=== PATIENT | female | born 1955 | race Caucasian/White ===

== ENCOUNTER 2018-06-29 18:16 | Emergency (ER) | payer MEDICARE, MEDICAID ==
[~2018-06-29] VITALS: Ht 157.5 cm; Wt 75.0 kg
[~2018-06-29 18:16] MED LIST: CALCIUM CARBONATE; CEPH500 PO; DOCUSATE PO; FERR-89 PO; LANS30CA55 PO; NYST1POW4 MC; TRIAMCINOLONE; VERAPAMIL; VITAMIN C
[2018-06-29 20:12] VITALS: BP 120/68
== END 2018-06-29 20:14 | disposition home or self-care (01) ==
LOC: EMS 18:17
DX: L08.9 Local infection of the skin and subcutaneous tissue, unspecified (principal); M79.89 Other specified soft tissue disorders; Z96.651 Presence of right artificial knee joint
CPT/HCPCS: 99284

== ENCOUNTER 2019-05-31 06:58 | Day surgery (SDC) | payer MEDICARE, MEDICAID ==
[~2019-05-31] VITALS: Ht 157.5 cm; Wt 84.1 kg
[~2019-05-31 06:58] MED LIST changes: +ACET-2247 PO; -CALCIUM CARBONATE; -CEPH500 PO; +CHOL100018 PO; +CYCLOPENTOLATE HCL 1% 2 ML OPHTHALMIC SOLUTION ONE; -DOCUSATE PO; +FLURBIPROFEN SODIUM 0.03% 2.5 ML OPHTHALMIC SOLUTION ONE; -LANS30CA55 PO; +LISI-660 PO; +METO25 PO; -NYST1POW4 MC; +OFLOXACIN 0.3% 5 ML OPHTHALMIC SOLUTION ONE; +OS500 PO; +OXYB5 PO; +PHENYLEPHRINE HCL 2.5% 2 ML OPHTHALMIC SOLUTION ONE; +RINGERS SOLUTION,LACTATED 500 ML IV ONE; +SPIR50 PO; +TETRACAINE HCL/PF 0.5% 4 ML OPHTHALMIC SOLUTION ONE; -TRIAMCINOLONE; +TROPICAMIDE 1% 2 ML OPHTHALMIC SOLUTION ONE; -VERAPAMIL; -VITAMIN C
[2019-05-31] MEDS ORDERED: LIDOCAINE/PF 1% 2 ML VIAL IM ONE (06:59)
[2019-05-31] MEDS ORDERED: EPINEPHrine 1:1,000 [1 MG/ML] AMP IM ONE (06:59)
[2019-05-31] MEDS ORDERED: FentaNYL CITRATE-PF 100 MCG/2 ML VIAL IVP ONE (06:59)
[2019-05-31] MEDS ORDERED: POVIDONE-IODINE 10% 15 ML SOLUTION UD TP ONE (06:59)
[2019-05-31] MEDS ORDERED: HYALURONATE SODIUM 12 MG/ML 0.8 ML SYRINGE IO ONE (06:59)
[2019-05-31] MEDS ORDERED: HYALURONATE SOD/CHONDROITIN SOD 0.5 ML VIAL IO ONE (06:59)
[2019-05-31] MEDS ORDERED: MIDAZOLAM HCL 2 MG/2 ML VIAL IVP ONE (06:59)
[2019-05-31] MEDS ORDERED: RINGERS SOLUTION,LACTATED 500 ML IV ONE (07:00)
[2019-05-31] MEDS ORDERED: TETRACAINE HCL/PF 0.5% 4 ML OPHTHALMIC SOLUTION OS ONE (07:00)
[2019-05-31] MEDS: TROPICAMIDE 1% 2 ML OPHTHALMIC SOLUTION OS SCH ×3 (07:32→07:59)
[2019-05-31] MEDS: PHENYLEPHRINE HCL 2.5% 2 ML OPHTHALMIC SOLUTION OS SCH ×3 (07:34→08:00)
[2019-05-31] MEDS: FLURBIPROFEN SODIUM 0.03% 2.5 ML OPHTHALMIC SOLUTION OS SCH ×3 (07:34→07:58)
[2019-05-31] MEDS: OFLOXACIN 0.3% 5 ML OPHTHALMIC SOLUTION OS SCH ×3 (07:34→07:58)
[2019-05-31] MEDS: CYCLOPENTOLATE HCL 1% 2 ML OPHTHALMIC SOLUTION OS SCH ×3 (07:35→07:59)
== END 2019-05-31 10:00 | disposition home or self-care (01) ==
LOC: SDS 06:58
PROVIDERS: ATTEND Ophthalmology
DX: H25.13 Age-related nuclear cataract, bilateral (principal); I10 Essential (primary) hypertension; Z79.899 Other long term (current) drug therapy
CPT/HCPCS: 66984; 93005; C1780; J0171; J2250; J3010; J3490 ×2; J7120

== ENCOUNTER 2019-07-18 06:17 | Day surgery (SDC) | payer MEDICARE, MEDICAID ==
[~2019-07-18] VITALS: Ht 152.4 cm; Wt 80.0 kg
[~2019-07-18 06:17] MED LIST changes: -CYCLOPENTOLATE HCL 1% 2 ML OPHTHALMIC SOLUTION ONE; -FLURBIPROFEN SODIUM 0.03% 2.5 ML OPHTHALMIC SOLUTION ONE; -OFLOXACIN 0.3% 5 ML OPHTHALMIC SOLUTION ONE; -PHENYLEPHRINE HCL 2.5% 2 ML OPHTHALMIC SOLUTION ONE; -RINGERS SOLUTION,LACTATED 500 ML IV ONE; -TETRACAINE HCL/PF 0.5% 4 ML OPHTHALMIC SOLUTION ONE; -TROPICAMIDE 1% 2 ML OPHTHALMIC SOLUTION ONE
[2019-07-18] MEDS ORDERED: FentaNYL CITRATE-PF 100 MCG/2 ML VIAL IVP ONE (06:18)
[2019-07-18] MEDS ORDERED: MIDAZOLAM HCL 2 MG/2 ML VIAL IVP ONE (06:18)
[2019-07-18] MEDS ORDERED: RINGERS SOLUTION,LACTATED 500 ML IV ONE ×2 (06:32→07:00)
[2019-07-18] MEDS ORDERED: OFLOXACIN 0.3% 5 ML OPHTHALMIC SOLUTION ONE (06:33)
[2019-07-18] MEDS ORDERED: CYCLOPENTOLATE HCL 1% 2 ML OPHTHALMIC SOLUTION ONE (06:33)
[2019-07-18] MEDS ORDERED: FLURBIPROFEN SODIUM 0.03% 2.5 ML OPHTHALMIC SOLUTION ONE (06:33)
[2019-07-18] MEDS ORDERED: PHENYLEPHRINE HCL 2.5% 2 ML OPHTHALMIC SOLUTION ONE (06:33)
[2019-07-18] MEDS ORDERED: TETRACAINE HCL/PF 0.5% 4 ML OPHTHALMIC SOLUTION ONE (06:33)
[2019-07-18] MEDS ORDERED: TROPICAMIDE 1% 2 ML OPHTHALMIC SOLUTION ONE (06:33)
[2019-07-18] MEDS ORDERED: SODIUM CHLORIDE 0.9% 500 ML IV ONE (07:00)
[2019-07-18] MEDS ORDERED: TETRACAINE HCL/PF 0.5% 4 ML OPHTHALMIC SOLUTION OD ONE (07:00)
[2019-07-18] MEDS: FLURBIPROFEN SODIUM 0.03% 2.5 ML OPHTHALMIC SOLUTION OD SCH ×3 (07:22→07:35)
[2019-07-18] MEDS: TROPICAMIDE 1% 2 ML OPHTHALMIC SOLUTION OD SCH ×3 (07:23→07:35)
[2019-07-18] MEDS: OFLOXACIN 0.3% 5 ML OPHTHALMIC SOLUTION OD SCH ×3 (07:23→07:35)
[2019-07-18] MEDS: PHENYLEPHRINE HCL 2.5% 2 ML OPHTHALMIC SOLUTION OD SCH ×3 (07:23→07:35)
[2019-07-18] MEDS: CYCLOPENTOLATE HCL 1% 2 ML OPHTHALMIC SOLUTION OD SCH ×3 (07:23→07:35)
== END 2019-07-18 09:20 | disposition home or self-care (01) ==
LOC: SURGERY 06:17
PROVIDERS: ATTEND Ophthalmology
DX: H25.11 Age-related nuclear cataract, right eye (principal); I10 Essential (primary) hypertension; E66.01 Morbid (severe) obesity due to excess calories; Z68.34 Body mass index [BMI] 34.0-34.9, adult; Z79.899 Other long term (current) drug therapy
CPT/HCPCS: 66984; 93005; C1780; J2250; J3010; J7120

== ENCOUNTER 2019-10-27 10:52 | Emergency (ER) | payer MEDICARE, MEDICAID ==
[~2019-10-27] VITALS: Ht 160 cm; Wt 86.0 kg
[2019-10-27 12:00] VITALS: BP 130/77
== END 2019-10-27 13:16 | disposition home or self-care (01) ==
LOC: EMS 10:58
DX: M25.461 Effusion, right knee (principal); Z98.890 Other specified postprocedural states; Z79.899 Other long term (current) drug therapy

== ENCOUNTER 2020-11-07 12:36 | Emergency (ER) | payer MEDICARE, MEDICAID ==
[~2020-11-07] VITALS: Ht 162.6 cm; Wt 113.6 kg
[~2020-11-07 12:36] MED LIST changes: -LISI-660 PO; +LISI-892 PO
[2020-11-07] MEDS ORDERED: METO50 PO (12:40)
[2020-11-07 15:06] LABS: COVID AG,FIA SOURCE NASAL SWAB
[2020-11-07 18:00] VITALS: BP 136/93
== END 2020-11-07 19:22 | disposition home or self-care (01) ==
LOC: EMS 12:40
DX: T69.1XXA Chilblains, initial encounter (principal); Z20.822 Contact with and (suspected) exposure to COVID-19; Z79.899 Other long term (current) drug therapy; X58.XXXA Exposure to other specified factors, initial encounter
CPT/HCPCS: 82962; 87426; 93925; 93970; 99285; U0003; 82948

== ENCOUNTER 2020-11-21 17:59 | Emergency (ER) | payer MEDICARE, MEDICAID ==
[~2020-11-21] VITALS: Ht 162.6 cm; Wt 100.0 kg
[~2020-11-21 17:59] MED LIST changes: -METO25 PO; +METO50 PO
[2020-11-21 19:30] VITALS: BP 128/74
== END 2020-11-21 21:00 | disposition home or self-care (01) ==
LOC: EMS 17:59
DX: S90.821A Blister (nonthermal), right foot, initial encounter (principal); I10 Essential (primary) hypertension; Z79.899 Other long term (current) drug therapy; X58.XXXA Exposure to other specified factors, initial encounter; Y93.89 Activity, other specified; Y92.89 Other specified places as the place of occurrence of the external cause; Y99.8 Other external cause status
CPT/HCPCS: 99282; 99283

== ENCOUNTER 2021-06-09 11:56 | Emergency (ER) | payer MEDICARE, MEDICAID ==
[~2021-06-09] VITALS: Ht 160 cm; Wt 90.9 kg
[~2021-06-09 11:56] MED LIST changes: -OXYB5 PO; +OXYB5TAB20 PO; -SPIR50 PO; +SPIR50TA27 PO
[2021-06-09] MEDS ORDERED: VIT1CAPS47 PO (12:17)
[2021-06-09] MEDS ORDERED: METO25 PO (12:17)
[2021-06-09] MEDS ORDERED: SIMV-259 PO (12:17)
[2021-06-09 13:03] LABS: EOSINOPHILS % (AUTO) 3.6 % (1.0-6.0); HEMATOCRIT 43.5 % (36-46); HEMOGLOBIN 14.1 g/dL (12.0-16.0); LYMPHOCYTES # (AUTO) 2.1 K/uL (1.0-4.8); LYMPHOCYTES % (AUTO) 20.1 % (22.0-44.0); MEAN CORPUSCULAR HEMOGLOBIN 29.8 pg (26.0-34.0); MEAN CORPUSCULAR HGB CONC 32.4 G/dL (31.0-37.0); MEAN CORPUSCULAR VOLUME 92 fL (80-100); MONOCYTES # (AUTO) 0.8 K/uL (0.1-1.0); MONOCYTES % (AUTO) 7.8 % (2.0-9.0); NEUTROPHILS # (AUTO) 7.2 K/uL (1.8-7.7); NEUTROPHILS % (AUTO) 67.5 % (40.0-70.0); PLATELET COUNT (AUTO) 302 K/uL (150-450); RED BLOOD CELL COUNT(AUTO) 4.74 MIL/uL (4.00-5.20); RED CELL DISTRIBUTION WIDTH 14.2 % (11.5-14.5)
[2021-06-09 13:12] LABS: ANION GAP 5 mmol/L (8-16); CARBON DIOXIDE 31 mmol/L (22-29); CHLORIDE 106 mmol/L (98-107); CREATININE 0.68 mg/dL (0.60-1.30); GLOMERULAR FILTR. RATE CALC > 60 mL/min (>60); GLUCOSE,RANDOM 93 mg/dL (70-110); POTASSIUM 4.3 mmol/L (3.5-5.1); SODIUM SERUM 142 mmol/L (136-145); UREA NITROGEN, BLOOD 19 mg/dL (7-18)
[2021-06-09 13:18] LABS: ALANINE AMINOTRANSFERASE 33 U/L (12-78); ALBUMIN 3.7 g/dL (3.4-5.0); ALKALINE PHOSPHATASE 88 U/L (46-116); ASPARTATE AMINOTRANSFERASE 20 U/L (15-37); BILIRUBIN,TOTAL 0.3 mg/dL (0.1-1.0)
[2021-06-09 13:41] LABS: INR 0.9 (0.9-1.1); PROTHROMBIN TIME 10.1 SEC (9.4-11.6)
[2021-06-09 17:09] VITALS: BP 118/64
== END 2021-06-09 17:10 | disposition home or self-care (01) ==
LOC: EMS 11:56
DX: N93.9 Abnormal uterine and vaginal bleeding, unspecified (principal); R93.89 Abnormal findings on diagnostic imaging of other specified body structures; E78.00 Pure hypercholesterolemia, unspecified; I10 Essential (primary) hypertension; Z79.899 Other long term (current) drug therapy
CPT/HCPCS: 76856; 80053; 84702; 85025; 85610; 85730; 99284